=== PATIENT | female | born 1990 ===

== ENCOUNTER 2023-03-06 19:49 | Emergency (ER) | payer MEDICAID, SELFPAY ==
[2023-03-06 20:08] VITALS: BP 115/78; PULSE 76; RESP 16; TEMP 35.9; O2SAT 98; BMI 32.4
--- NOTE | 2023-03-06 20:17 | ED_ITS ---
HPI - General Adult General Chief complaint: Skin/Abscess/Foreign Body Stated complaint: Allergic reaction? Ear pain Time Seen by Provider: 03/06/23 21:36 History of Present Illness HPI narrative: Left without completetion of treatment. Related Data Allergies Allergy/AdvReac Type Severity Reaction Status Date / Time No Known Allergies Allergy Verified 03/06/23 20:08 [facility] Social History Social History Advance Directives: No Advance Directives Information Provided: No Physical Exam ED Vital Signs: Vital Signs - 24 hr 03/06/23 20:08 Temperature 96.7 F L Pulse Rate 76 Respiratory Rate 16 Blood Pressure 115/78 Pulse Oximetry 98 Oxygen Delivery Method Room Air BMI result Body Mass Index 32.4 Course Course Course Narrative: RME: 32 yold female presents to the ED for generalized intermittent itchy rash for the past 4 months she has been in [place]. Patient denies any swelling of lips, shortness of breath, sensation of throat closing, fever, chills, or swelling of tongue. Patient denies any bedbugs. Discharge Plan Discharge Clinical Impression: Rash Patient Disposition: Left W/O Completing Treatment Discharge Date/Time: 03/06/23 23:28
--- NOTE | 2023-03-06 21:55 | MHC.EDTECH ---
This tech called patient @[id number] - No Answer
--- NOTE | 2023-03-06 21:55 | MHC.EDTECH ---
This tech called patient @[id number] - Was informed by front counter clerk Reg, She had left.
== END 2023-03-06 23:28 | disposition left against medical advice (07) ==
LOC: HO.ED 23:14
PROVIDERS: Emergency Provider Emergency Medicine
DX: R21 Rash and other nonspecific skin eruption (principal)
CPT/HCPCS: 99281